=== PATIENT | female | born 1965 | race American Indian/Alaskan Native ===

== ENCOUNTER 2017-02-12 22:58 | Emergency (ER) | payer MEDICARE ==
[2017-02-12 22:59] VITALS: BMI 31.6
[2017-02-12 23:10] VITALS: TEMP 98
--- NOTE | 2017-02-12 23:38 | ED PDOC ---
Arrival/HPI - General Historian: Patient - History of Present Illness Time/Duration: Prior to Arrival, 24 hours Symptom Course: Unchanged Quality: Aching Severity Level: 7 <Gallito Mcleod - Last Filed: 02/13/17 05:44> <Darron Borja - Last Filed: 02/13/17 05:47> - General Chief Complaint: Cough, Cold, Congestion Time Seen by Provider: 02/12/17 23:21 - History of Present Illness Narrative History of Present Illness (Text): 02/12/17 23:45 This is a 51 year old female with a PMH notable for HTN, COPD, asthma, SLE, RA, gastritis, fibroid uterus, chronic pain presenting to the ED with complaint of generalized body pain. The patient notes that her pain started this morning. She received only minimal relief with oxycodone 30mg. The patient reports being out of her month supply of oxycodone. This is prior to her refill date. The patient states that she has had worse back pain this month than in months past causing her to take more of her pain medications than prescribed. The patient appears comfortable in the bed and is sleeping during the examination. The patient denies chest pain, shortness of breath, abdominal pain, N/V/D/C, and extremity paresthesias/weakness. (Gallito Mcleod) Past Medical History - Provider Review Nursing Documentation Reviewed: Yes - Travel History Have you recently traveled outside [place] w/in the past 3 mons?: No - Infectious Disease Hx of Infectious Diseases: None - Tetanus Immunization Tetanus Immunization: Unknown - Reproductive Menopause: Yes - Cardiac Hx Cardiac Disorders: Yes Hx Hypertension: Yes - Pulmonary Hx Respiratory Disorders: Yes Hx Asthma: Yes Hx Chronic Obstructive Pulmonary Disease (COPD): Yes - Neurological Other/Comment: Sciatica - HEENT Hx HEENT Disorder: No - Renal Hx Renal Disorder: No - Endocrine/Metabolic Hx Endocrine Disorders: Yes Hx Systemic Lupus Erythematosus: Yes (dx with lupus 2 yrs ago) - Hematological/Oncological Hx Blood Disorders: No - Integumentary Hx Dermatological Disorder: No - Musculoskeletal/Rheumatological Hx Musculoskeletal Disorders: Yes Hx Arthritis: Yes Hx Back Pain: Yes Hx Falls: No Hx Herniated Disk: Yes (LUMBAR) Hx Rheumatoid Arthritis: Yes - Gastrointestinal Hx Gastrointestinal Disorders: Yes - Genitourinary/Gynecological Hx Genitourinary Disorders: Yes - Psychiatric Hx Psychophysiologic Disorder: No Hx Depression: No Hx Substance Use: No - Past Surgical History Past Surgical History: Unable to Obtain - Surgical History Hx Hysterectomy: Yes Hx Orthopedic Surgery: Yes (B/L knee replacement) Other/Comment: sinus sx - Anesthesia Hx Anesthesia: Yes Hx Anesthesia Reactions: No Hx Malignant Hyperthermia: No - Suicidal Assessment Feels Threatened In Home Enviroment: No <Gallito Mcleod - Last Filed: 02/13/17 05:44> <Darron Borja - Last Filed: 02/13/17 05:47> - Patient History Narrative Patient History: This is a 51 year old female with a PMH notable for HTN, COPD, asthma, SLE, RA, gastritis, fibroid uterus, chronic pain (Gallito Mcleod) Family/Social History - Physician Review Nursing Documentation Reviewed: Yes Family/Social History: No Known Family HX Smoking Status: Never Smoked Hx Alcohol Use: No Hx Substance Use: No Hx Substance Use Treatment: No <Gallito Mcleod - Last Filed: 02/13/17 05:44> Allergies/Home Meds <Gallito Mcleod - Last Filed: 02/13/17 05:44> <Darron Borja - Last Filed: 02/13/17 05:47> Allergies/Adverse Reactions: Allergies aspirin Allergy (Verified 02/12/17 23:10) SHORTNESS OF BREATH metoprolol Allergy (Verified 02/12/17 23:10) SHORTNESS OF BREATH naproxen [From Naprosyn] Allergy (Verified 02/12/17 23:10) SHORTNESS OF BREATH NSAIDS (Non-Steroidal Anti-Inflamma Allergy (Verified 02/13/17 01:17) ANAPHYLAXIS Home Medications: Home Meds Medication Instructions Recorded Confirmed Abatacept [Orencia] 125 mg SC QWK 08/05/14 02/12/17 Albuterol HFA [Ventolin HFA 90 2 puff IH BID 08/05/14 02/12/17 mcg/actuation (8 g)] Arformoterol [Brovana] 1 inh NEB Q4H PRN 06/18/15 02/12/17 Tiotropium [Spiriva] 1 inh PO DAILY 06/18/15 02/12/17 Esomeprazole Magnesium [Nexium] 1 tab PO DAILY 01/14/17 02/12/17 Hydrochlorothiazide [Microzide] 25 mg PO DAILY 01/14/17 02/12/17 Hydroxychloroquine Sulfate 200 mg PO BID 01/14/17 02/12/17 [Plaquenil] Losartan [Cozaar] 1 tab PO DAILY 01/14/17 02/12/17 Prednisone [Clementine] 4 mg PO DAILY 01/14/17 02/12/17 Review of Systems - Physician Review All systems were reviewed & negative as marked: Yes - Review of Systems Constitutional: Fatigue Eyes: absent: Vision Changes ENT: absent: Hearing Changes Respiratory: absent: SOB, Cough Cardiovascular: absent: Chest Pain, Palpitations Gastrointestinal: absent: Abdominal Pain, Stool Changes Genitourinary Female: absent: Dysuria, Frequency Musculoskeletal: Arthralgias, Back Pain, Neck Pain, Myalgias Neurological: absent: Headache Endocrine: absent: Diaphoresis Hemo/Lymphatic: absent: Adenopathy Psychiatric: absent: Anxiety <Gallito Mcleod - Last Filed: 02/13/17 05:44> Physical Exam Vital Signs Reviewed: Yes Temperature: Afebrile Blood Pressure: Hypertensive Pulse: Regular Respiratory Rate: Normal Appearance: Positive for: Well-Appearing, Non-Toxic, Comfortable Pain Distress: None (patient sleeping through examination) Mental Status: Positive for: Alert and Oriented X 3 - Systems Exam Head: Present: Atraumatic, Normocephalic Pupils: Present: PERRL Extroacular Muscles: Present: EOMI Conjunctiva: Present: Normal Mouth: Present: Moist Mucous Membranes Neck: Present: Normal Range of Motion Respiratory/Chest: Present: Clear to Auscultation, Good Air Exchange. No: Respiratory Distress, Accessory Muscle Use Cardiovascular: Present: Regular Rate and Rhythm, Normal S1, S2. No: Murmurs Abdomen: Present: Normal Bowel Sounds. No: Tenderness, Distention, Peritoneal Signs Back: Present: Normal Inspection Upper Extremity: Present: Normal Inspection, Normal ROM, NORMAL PULSES, Tenderness (diffuse), Neurovascularly Intact. No: Cyanosis, Edema, Swelling Lower Extremity: Present: Normal Inspection, CALF TENDERNESS, NORMAL PULSES, Tenderness (diffuse), Neurovascularly Intact. No: Edema Neurological: Present: GCS=15, CN II-XII Intact Skin: Present: Warm, Dry, Normal Color. No: Rashes Psychiatric: Present: Alert, Oriented x 3 <Gallito Mcleod - Last Filed: 02/13/17 05:44> Vital Signs Temp Pulse Resp BP Pulse Ox 02/13/17 04:30 97 H 18 150/86 99 02/13/17 03:15 90 18 119/80 99 02/13/17 01:45 94 H 22 141/82 97 02/12/17 23:06 98 F 99 H 20 162/94 H 98 Medical Decision Making Re-evaluation Time: 00:50 Reassessment Condition: Re-examined <Gallito Mcleod - Last Filed: 02/13/17 05:44> <Darron Borja - Last Filed: 02/13/17 05:47> ED Course and Treatment: 02/12/17 23:52 Impression: This is a 51 year old female with a PMH notable for HTN, COPD, asthma, SLE, RA, gastritis, fibroid uterus, chronic pain presenting to the ED with complaint of generalized body pain. Patient texting on phone and sleeping prior to examination. The patient is out of her home pain medications. She was informed that she would need to see her PMD for a medication refill. Differential: Lupus Flare Chronic Pain Opiate Dependence Reflex Sympathetic Dystrophy Plan: toraldol 60mg IM Previous Visits: 09/21/15- COPD Exacerbation 08/10/14- Uterine Fibroids 03/28/14- Chest Pain 05/30/13- COPD Multiple ED visits for "Body Pain" Progress Note: Patient seen adn examined at the bedside. No acute distress. Patient appears comfortable. Patient fell asleep after the examination. Patient will be given an IM injection of 60mg Toradol. 02/13/17 00:56 Patient re-examined following IM toradol. Patient reports improved pain and is feeling much better. Patient does report wheezing. She normally takes nubulizer treatments every four hours and it has been 5 hours since her last treatment. Patient was given a nebulizer treatment. Patient's condition worsened following the nebulizer treatment. Patient began to exhibit stridor. Epinephrine SC and recemic epiniephrine INH was given in addition to solumedrol 125mg IV and benadryl IV. The patient will be monitored for further adverse reactions. NSAIDs were added to patients allergy list for future encounters. 02/13/17 01:24 Patient re-examined following treatment. Condition improved. Wheezing resolving. Patient is minimally verbal. 02/13/17 03:51 Patient was re-examined at the bedside. Feeling much improved. Continues to be verbal. Few scattered end expiratory wheezes present. Patient has stabilzied. 02/13/17 05:44 Patient observed. Sating well. Wheezing resolved with repeat breathing treatment. Patient feeling better. Patient requesting to go home. Patient medically stable for discharge. (Gallito Mcleod) Impression: Pt seen and evaluated with medical doctor md. Pt, whose past medical history includes hypertension, COPD, asthma, lupus, rheumatiod arthritis, gastritis, fibroid uterus, and chronic pain, presented for generalized body aches since this morning. Pt reports only minimal relief with Oxycodone. Aware and agree with HPI, clinical findings, plan, and management. Plan: -- Toradol -- Reassess and disposition Progress Notes: (Darron Borja) - Medication Orders Current Medication Orders: Discontinued Medications Albuterol/Ipratropium (Duoneb 3 Mg/0.5 Mg (3 Ml) Ud) 3 ml IH STAT STA Stop: 02/13/17 00:51 Last Admin: 02/13/17 00:50 Dose: 3 ML Albuterol/Ipratropium (Duoneb 3 Mg/0.5 Mg (3 Ml) Ud) Confirm Administered Dose 3 ml .ROUTE .STK-MED ONE Stop: 02/13/17 04:29 Last Admin: 02/13/17 04:51 Dose: Albuterol/Ipratropium (Duoneb 3 Mg/0.5 Mg (3 Ml) Ud) 3 ml IH ONCE STA Stop: 02/13/17 04:31 Last Admin: 02/13/17 04:25 Dose: 3 ML Diphenhydramine HCl (Benadryl) 25 mg IVP STAT STA Stop: 02/13/17 01:03 Last Admin: 02/13/17 01:09 Dose: 25 MG IVP Administration Document 02/13/17 01:09 YP (Rec: 02/13/17 01:25 YP [id number]) Charges for Administration # of IVP Administrations 1 Diphenhydramine HCl (Benadryl) 25 mg IVP STAT STA Stop: 02/13/17 01:24 Last Admin: 02/13/17 01:09 Dose: 25 MG IVP Administration Document 02/13/17 01:09 YP (Rec: 02/13/17 01:31 YP [id number]) Charges for Administration # of IVP Administrations 1 Epinephrine HCl (Epinephrine) 1 mg SC STAT STA Stop: 02/13/17 01:04 Last Admin: 02/13/17 01:07 Dose: 1 MG Subcutaneous Administrations Document 02/13/17 01:07 YP (Rec: 02/13/17 01:26 YP [id number]) Injection Site MAR Injection Site Left Arm Charges for Administration # of Subcutaneous Administrations 1 Famotidine (Pepcid) Confirm Administered Dose 20 mg .ROUTE .STK-MED ONE Stop: 02/13/17 01:07 Last Admin: 02/13/17 01:24 Dose: Ketorolac Tromethamine (Toradol) 60 mg IM STAT STA Stop: 02/12/17 23:41 Last Admin: 02/13/17 00:07 Dose: 60 MG IM Administration Charges Document 02/13/17 00:07 YP (Rec: 02/13/17 00:07 YP [id number]) Injection Site MAR Injection Site Left Gluteus Marcus Charges for Administration # of IM Administrations 1 Methylprednisolone (Solu-Medrol) 125 mg IV ONCE STA Stop: 02/13/17 01:03 Last Admin: 02/13/17 01:06 Dose: 125 MG eMAR Start Stop Document 02/13/17 01:06 YP (Rec: 02/13/17 01:24 YP [id number]) Intravenous Solution Start Date 02/13/17 Start Time 01:06 End Date 02/13/17 End time 01:08 Total Infusion Time 2 Methylprednisolone (Solu-Medrol) Confirm Administered Dose 125 mg .ROUTE .STK- MED ONE Stop: 02/13/17 01:06 Last Admin: 02/13/17 01:26 Dose: Racepinephrine (Racepinephrine 2.25% Inhl Soln) 0.5 ml IH STAT STA Stop: 02/13/17 01:08 Last Admin: 02/13/17 01:12 Dose: 0.5 ML - PA / MANUFACTURING SPECIALIST / Resident Statement / has reviewed & agrees with the documentation as recorded. / has examined the patient and agrees with the treatment plan. <Darron Borja - Last Filed: 02/13/17 05:47> Disposition/Present on Arrival - Present on Arrival Any Indicators Present on Arrival: No History of DVT/PE: No History of Uncontrolled Diabetes: No Urinary Catheter: No History of Decub. Ulcer: No History Surgical Site Infection Following: None - Disposition Have Diagnosis and Disposition been Completed?: Yes Disposition Time: 00:30 Patient Plan: Discharge <Gallito Mcleod - Last Filed: 02/13/17 05:44> <Darron Borja - Last Filed: 02/13/17 05:47> - Disposition Diagnosis: Chronic pain disorder Disposition: HOME/ ROUTINE Condition: FAIR Discharge Instructions (ExitCare): Chronic Pain (ED) Print Language: ETHIOPIAN Additional Instructions: 1.) Follow up with PMD and animated cartoons painter for medication refill 2.) Take all medications in accordance with physician prescription 3.) If symptoms return, please return to the ED for evaluation
[2017-02-13] MEDS ORDERED: Albuterol-Ipratrop 3 mg / 0.5 (3 ml) UD IH STA ×2 (00:50→04:30)
[2017-02-13] MEDS ORDERED: DiphenhydrAMINE 50 mg/ml Inj IVP STA ×2 (01:02→01:23)
[2017-02-13] MEDS ORDERED: EPINEPHrine 1 mg/ml (1:1000) Inj SC STA (01:03)
[2017-02-13] MEDS ORDERED: Racepinephrine 2.25% Inhal Soln 0.5 ML UD IH STA (01:07)
[2017-02-13 03:21] VITALS: RESP 18; O2SAT 99
[2017-02-13] MEDS ORDERED: Albuterol-Ipratrop 3 mg / 0.5 (3 ml) UD ONE (04:28)
[2017-02-13 06:00] VITALS: BP 123/69; PULSE 86
== END 2017-02-13 05:59 | disposition home or self-care (01) ==
LOC: ED 22:58
DX: G89.29 Other chronic pain (principal); I10 Essential (primary) hypertension; M32.9 Systemic lupus erythematosus, unspecified; M06.9 Rheumatoid arthritis, unspecified
CPT/HCPCS: 96372; 96374; 96375; 99284; J0171; J1200; J1885; J2930